=== PATIENT | female | born 1990 | race Asian ===

== ENCOUNTER 2024-09-02 11:18 | Outpatient (CLI) | payer BC, OTHER ==
[2024-09-02 12:52] LABS: MEAN CORPUSCULAR HEMOGLOBIN 30.5 PG (27.0-31.0); MEAN CORPUSCULAR HGB CONC 33.4 g/dL (33.0-36.5); MEAN CORPUSCULAR VOLUME 91.4 FL (78-98); MEAN PLATELET VOLUME 7.7 FL (7.4-10.4); PLATELET COUNT 353 X10'3 (140-440); RED BLOOD COUNT 4.93 X10'6 (4.20-5.60); RED CELL DISTRIBUTION WIDTH 13.5 % (11.5-14.5); WHITE BLOOD COUNT 9.9 X10'3 (4.5-11.0)
[2024-09-02 13:36] LABS: HIV ANTIBODY 1&2 RAPID NON-REACTIVE (Neg)
[2024-09-07 05:12] LABS: HEP B SURF AB Reactive (.); HEPATITIS C VIRUS ANTIBODY Non Reactive (Non Reactive); RUBELLA ANTIBODIES, IGG 3.19 index (Immune >0.99); VARICELLA-ZOSTER VIRUS AB, IGG Reactive (Non Reactive)
== END 2024-09-02 23:59 | disposition home or self-care (01) ==
LOC: RAD 11:18
PROVIDERS: ATTEND Nurse Practitioner Obstetrics & Gynecology
DX: Z34.01 Encounter for supervision of normal first pregnancy, first trimester (principal); Z3A.11 11 weeks gestation of pregnancy
CPT/HCPCS: 36415; 76805; 84443; 85027; 86592; 86703; 86706; 86762; 86803; 86900; 86901; 87522

== ENCOUNTER 2024-10-06 10:02 | Outpatient (CLI) | payer BC ==
[2024-10-07 09:14] LABS: HBSAG SCREEN Negative (Negative)
== END 2024-10-06 23:59 | disposition home or self-care (01) ==
LOC: LAB 10:02
PROVIDERS: ATTEND Nurse Practitioner Obstetrics & Gynecology
DX: Z34.02 Encounter for supervision of normal first pregnancy, second trimester (principal)
CPT/HCPCS: 36415; 83036; 86885; 86900; 86901; 87340

== ENCOUNTER 2024-10-14 08:28 | Outpatient (CLI) | payer BC | END 2024-10-14 23:59 | disposition home or self-care (01) | LOC: RAD 08:28 | PROVIDERS: ATTEND Nurse Practitioner Obstetrics & Gynecology | DX: O09.92 Supervision of high risk pregnancy, unspecified, second trimester (principal); Z3A.18 18 weeks gestation of pregnancy | CPT/HCPCS: 76805 ==

== ENCOUNTER 2024-10-21 10:06 | Outpatient (CLI) | payer BC ==
[2024-10-21 10:30] LABS: BASOPHILS % (AUTO) 0.3 % (0-1); EOSINOPHILS # (AUTO) 0.1 X10'3 (0-0.9); EOSINOPHILS % (AUTO) 1.4 % (0-6); HEMATOCRIT 41.3 % (35.0-45.0); LYMPHOCYTES # (AUTO) 1.9 X10'3 (1.1-4.8); LYMPHOCYTES % (AUTO) 20.2 % (21-51); MEAN CORPUSCULAR HGB CONC 33.9 g/dL (33.0-36.5); MEAN CORPUSCULAR VOLUME 91.6 FL (78-98); MEAN PLATELET VOLUME 7.4 FL (7.4-10.4); MONOCYTES # (AUTO) 0.5 X10'3 (0-0.9); MONOCYTES % (AUTO) 5.1 % (2-12); NEUTROPHILS # (AUTO) 6.9 X10'3 (1.8-7.7); PLATELET COUNT 317 X10'3 (140-440); RED CELL DISTRIBUTION WIDTH 13.6 % (11.5-14.5); WHITE BLOOD COUNT 9.4 X10'3 (4.5-11.0)
[2024-10-21 10:44] LABS: CREATININE 24 HOUR,URINE 946 MG/24HR (750-1510); TOTAL PROTEIN 24HR,URINE 156.2 MG/24HR (28-141); TOTAL VOLUME 24HRS,URINE 2200 ML
[2024-10-21 10:53] LABS: ALANINE AMINOTRANSFERASE 63 U/L (12-78); ALBUMIN 3.3 G/DL (3.4-5.0); ALKALINE PHOSPHATASE 61 IU/L (46-116); ANION GAP 7 (8-16); ASPARTATE AMINO TRANSFERASE 24 U/L (10-37); BILIRUBIN,TOTAL 0.3 MG/DL (0.1-1.0); BLOOD UREA NITROGEN 9 MG/DL (7-18); BUN/CREATININE RATIO 19.6 (10.0-20.0); CALCIUM 8.7 MG/DL (8.5-10.1); CHLORIDE 106 MMOL/L (99-107); CREATININE 0.46 MG/DL (0.40-0.90); GLUCOSE 107 MG/DL (70-104); POTASSIUM 3.7 MMOL/L (3.5-5.1); SODIUM 139 MMOL/L (135-145); TOTAL CARBON DIOXIDE 26.1 MMOL/L (24-32); TOTAL PROTEIN 6.7 G/DL (6.4-8.2); URIC ACID 4.1 MG/DL (2.5-6.2); eGFR > 90 ML/MIN
[2024-10-21 12:50] LABS: CREATININE 0.4 MG/DL (0.40-0.90)
== END 2024-10-21 23:59 | disposition home or self-care (01) ==
LOC: LAB 10:06
PROVIDERS: ATTEND Nurse Practitioner Obstetrics & Gynecology
DX: O09.92 Supervision of high risk pregnancy, unspecified, second trimester (principal); Z3A.00 Weeks of gestation of pregnancy not specified
CPT/HCPCS: 36415; 80053; 82570; 82575; 84156; 84550; 85025

== ENCOUNTER 2024-11-02 08:53 | Outpatient (CLI) | payer BC ==
[2024-11-02 10:25] LABS: GESTATIONAL GLU TOL INTERP SEE INTERP; GLUCOSE,FASTING GESTATIONAL 82 MG/DL (51-92)
== END 2024-11-02 23:59 | disposition home or self-care (01) ==
LOC: LAB 08:53
PROVIDERS: ATTEND Nurse Practitioner Obstetrics & Gynecology
DX: O09.92 Supervision of high risk pregnancy, unspecified, second trimester (principal); Z3A.00 Weeks of gestation of pregnancy not specified
CPT/HCPCS: 36415; 82951; 82952

== ENCOUNTER 2024-11-26 09:39 | Outpatient (CLI) | payer BC | END 2024-11-26 23:59 | disposition home or self-care (01) | LOC: RAD 09:39 | PROVIDERS: ATTEND Nurse Practitioner Obstetrics & Gynecology | DX: O09.92 Supervision of high risk pregnancy, unspecified, second trimester (principal); O16.2 Unspecified maternal hypertension, second trimester; Z3A.18 18 weeks gestation of pregnancy | CPT/HCPCS: 93005 ==

== ENCOUNTER 2024-12-22 08:45 | Outpatient (CLI) | payer BC ==
[2024-12-22 09:14] LABS: BASOPHILS % (AUTO) 0.4 % (0-1); EOSINOPHILS # (AUTO) 0.1 X10'3 (0-0.9); HEMATOCRIT 41.7 % (35.0-45.0); LYMPHOCYTES # (AUTO) 2.1 X10'3 (1.1-4.8); LYMPHOCYTES % (AUTO) 17.9 % (21-51); MEAN CORPUSCULAR HEMOGLOBIN 30.8 PG (27.0-31.0); MEAN CORPUSCULAR HGB CONC 33.5 g/dL (33.0-36.5); MEAN CORPUSCULAR VOLUME 91.9 FL (78-98); MEAN PLATELET VOLUME 7.8 FL (7.4-10.4); MONOCYTES # (AUTO) 0.6 X10'3 (0-0.9); MONOCYTES % (AUTO) 5.4 % (2-12); NEUTROPHILS # (AUTO) 8.7 X10'3 (1.8-7.7); NEUTROPHILS % (AUTO) 75.3 % (42-75); PLATELET COUNT 316 X10'3 (140-440); RED BLOOD COUNT 4.53 X10'6 (4.20-5.60); RED CELL DISTRIBUTION WIDTH 14.3 % (11.5-14.5); WHITE BLOOD COUNT 11.6 X10'3 (4.5-11.0)
[2024-12-22 09:34] LABS: GESTATIONAL GLU TOL INTERP SEE INTERP
[2024-12-22 09:37] LABS: URINE AMPHETAMINE SCREEN NEGATIVE (Neg); URINE BARBITUATE SCREEN NEGATIVE (Neg); URINE BENZODIAZEPINES SCREEN NEGATIVE (Neg); URINE CANNABINOID SCREEN NEGATIVE (Neg); URINE COCAINE SCREEN NEGATIVE (Neg); URINE METHADONE SCREEN NEGATIVE (Neg); URINE OPIATE SCREEN NEGATIVE (Neg); URINE PHENCYCLIDINE SCREEN NEGATIVE (Neg)
[2024-12-22 09:57] LABS: GLUCOSE,FASTING GESTATIONAL 80 MG/DL (51-92)
[2024-12-24 09:16] LABS: CHLAMYDIA TRACHOMATIS, NAA Negative (Negative)
== END 2024-12-22 23:59 | disposition home or self-care (01) ==
LOC: RAD 08:45
PROVIDERS: ATTEND Nurse Practitioner Obstetrics & Gynecology
DX: O09.92 Supervision of high risk pregnancy, unspecified, second trimester (principal); Z3A.00 Weeks of gestation of pregnancy not specified
CPT/HCPCS: 36415; 80305; 82951; 82952; 85025; 86592; 87491

== ENCOUNTER 2025-01-11 07:44 | Outpatient (CLI) | payer BC ==
[2025-01-11 08:10] LABS: BASOPHILS # (AUTO) 0.1 X10'3 (0-0.2); BASOPHILS % (AUTO) 0.7 % (0-1); EOSINOPHILS # (AUTO) 0.1 X10'3 (0-0.9); EOSINOPHILS % (AUTO) 1.1 % (0-6); HEMATOCRIT 39.1 % (35.0-45.0); HEMOGLOBIN 13.1 g/dl (12.0-16.0); LYMPHOCYTES # (AUTO) 1.8 X10'3 (1.1-4.8); LYMPHOCYTES % (AUTO) 18.6 % (21-51); MEAN CORPUSCULAR HEMOGLOBIN 30.9 PG (27.0-31.0); MEAN CORPUSCULAR HGB CONC 33.5 g/dL (33.0-36.5); MEAN CORPUSCULAR VOLUME 92.1 FL (78-98); MEAN PLATELET VOLUME 7.8 FL (7.4-10.4); MONOCYTES # (AUTO) 0.5 X10'3 (0-0.9); MONOCYTES % (AUTO) 5.1 % (2-12); NEUTROPHILS # (AUTO) 7.1 X10'3 (1.8-7.7); NEUTROPHILS % (AUTO) 74.5 % (42-75); PLATELET COUNT 275 X10'3 (140-440); RED BLOOD COUNT 4.24 X10'6 (4.20-5.60); RED CELL DISTRIBUTION WIDTH 14.1 % (11.5-14.5); WHITE BLOOD COUNT 9.6 X10'3 (4.5-11.0)
[2025-01-11 08:31] LABS: ALANINE AMINOTRANSFERASE 19 U/L (12-78); ALBUMIN 2.9 G/DL (3.4-5.0); ALBUMIN/GLOBULIN RATIO 0.9 (1.1-1.5); ALKALINE PHOSPHATASE 104 IU/L (46-116); ANION GAP 9 (8-16); ASPARTATE AMINO TRANSFERASE 19 U/L (10-37); BILIRUBIN,TOTAL 0.3 MG/DL (0.1-1.0); BLOOD UREA NITROGEN 11 MG/DL (7-18); CALCIUM 8.5 MG/DL (8.5-10.1); CHLORIDE 105 MMOL/L (99-107); GLUCOSE 143 MG/DL (70-104); POTASSIUM 3.8 MMOL/L (3.5-5.1); SODIUM 138 MMOL/L (135-145); TOTAL CARBON DIOXIDE 24.1 MMOL/L (24-32); TOTAL PROTEIN 6.2 G/DL (6.4-8.2)
[2025-01-11 08:52] LABS: CREATININE 24 HOUR,URINE 1400 MG/24HR (750-1510); TOTAL VOLUME 24HRS,URINE 2500 ML; TOTAL VOLUME,URINE 2500 ML
[2025-01-11 09:37] LABS: BUN/CREATININE RATIO 17.7 (10.0-20.0); CREATININE 0.62 MG/DL (0.40-0.90); CREATININE CLEARANCE,URINE 157 ML/MIN (88-138); eGFR > 90 ML/MIN
== END 2025-01-11 23:59 | disposition home or self-care (01) ==
LOC: LAB 07:44
PROVIDERS: ATTEND Nurse Practitioner Obstetrics & Gynecology
DX: O09.93 Supervision of high risk pregnancy, unspecified, third trimester (principal); Z3A.00 Weeks of gestation of pregnancy not specified
CPT/HCPCS: 36415; 80053; 82570; 82575; 84156; 85025

== ENCOUNTER 2025-01-31 12:09 | Outpatient (CLI) | payer BC ==
--- NOTE | 2025-01-31 14:30 | RADIOLOGY REPORT ---
BIOPHYSICAL PROFILE HISTORY: SUPERVISION OF HIGH RISK , UNSP, THIRD TRIMESTER TECHNIQUE: Multiple real-time grayscale sonographic images through the gravid uterus of the fetus wi th duplex Doppler color flow and M-mode spectral analysis FINDINGS: BIOPHYSICAL PROFILE: breathing score: 2 movement score: 2 tone score: 2 Quantitative VIPUL score: 2 (VIPUL: 11.84 Cm.) Total score: 8 The cervix was not seen Single live fetus in cephalic presentation. heart rate 134 beats per minute. Grade II anterior placenta without previa or abruption IMPRESSION: Biophysical profile score: 8/8
== END 2025-01-31 23:59 | disposition home or self-care (01) ==
LOC: RAD 12:09
PROVIDERS: ATTEND Nurse Practitioner Obstetrics & Gynecology
DX: O09.93 Supervision of high risk pregnancy, unspecified, third trimester (principal); Z3A.00 Weeks of gestation of pregnancy not specified
CPT/HCPCS: 76819